=== PATIENT | female | born 1950 | race Caucasian/White ===

== ENCOUNTER → 2017-09-21 | Outpatient (CLI) | payer MEDICARE, OTHER ==
[~2017-09-21] MED LIST: Armour Thyroid120 MG; HYDACE5 PO; IBUP400 PO
[2017-09-25 11:12] LABS: HPV Genotype 16 Not Detected (NOTDET); HPV Genotype 18 Not Detected (NOTDET)
[2017-09-26 13:10] LABS: HPV High Risk Other Not Detected (NOTDET)
== END | disposition home or self-care (01) ==
LOC: OLS 13:53
PROVIDERS: Obstetrics & Gynecology Gynecology
DX: Z12.4 Encounter for screening for malignant neoplasm of cervix (principal)
CPT/HCPCS: 87624; G0123

== ENCOUNTER 2017-09-27 12:14 | Day surgery (SDC) | payer MEDICARE, OTHER ==
[~2017-09-27] VITALS: Ht 165.1 cm; Wt 53.0 kg
[~2017-09-27 12:14] MED LIST changes: -Armour Thyroid120 MG; -IBUP400 PO
[2017-09-27] MEDS ORDERED: Armour Thyroid120 MG (13:14)
[2017-09-27] MEDS ORDERED: IBUP400 PO (13:15)
== END 2017-09-27 16:26 | disposition home or self-care (01) ==
LOC: ORSCSDS 12:14
DX: S83.241A Other tear of medial meniscus, current injury, right knee, initial encounter (principal); S83.281A Other tear of lateral meniscus, current injury, right knee, initial encounter; M17.11 Unilateral primary osteoarthritis, right knee; M94.261 Chondromalacia, right knee; E03.9 Hypothyroidism, unspecified; Z79.899 Other long term (current) drug therapy
CPT/HCPCS: J0690; J1100; J1885; J2250; J2405; J2795; J3010; J7120

== ENCOUNTER 2019-01-30 00:33 | Emergency (ER) | payer MEDICARE, OTHER ==
[~2019-01-30] VITALS: Ht 167.6 cm; Wt 52.6 kg
[~2019-01-30 00:33] MED LIST changes: +Armour Thyroid120 MG; +IBUP400 PO
== END 2019-01-30 02:55 | disposition home or self-care (01) ==
LOC: ER 00:33
DX: S03.2XXA Dislocation of tooth, initial encounter (principal); S01.511A Laceration without foreign body of lip, initial encounter; W18.30XA Fall on same level, unspecified, initial encounter
CPT/HCPCS: 70450; 70486; 72125; A9270-GY; L0160

== ENCOUNTER → 2020-04-13 | Outpatient (CLI) | payer MEDICARE, OTHER | END | disposition home or self-care (01) | LOC: LAB SHORT 08:07 → PLD 08:07 | DX: L57.0 Actinic keratosis (principal) | CPT/HCPCS: 88305 ==